=== PATIENT | female | born 1940 | race Asian ===

== ENCOUNTER 2018-08-12 11:15 | Emergency (ER) | payer OTHER, MEDICARE ==
[2018-08-12 11:22] VITALS: BP 136/51; PULSE 83; TEMP 97.8; BMI 22.4
[2018-08-12] MEDS ORDERED: KETOROLAC TROMETHAMINE 30 MG/1 ML VIAL IM ONE (11:54)
[2018-08-12] MEDS ORDERED: LIDOCAINE 5% TOPICAL PATCH TP ONE (11:55)
[2018-08-12] MEDS ORDERED: LIDOCAINE 5% TOPICAL PATCH ONE (12:23)
[2018-08-12] MEDS ORDERED: KETOROLAC TROMETHAMINE 30 MG/1 ML VIAL ONE (12:23)
[2018-08-12 12:34] LABS: PH,URINE 6.5 (5.0-8.0); URINE APPEARANCE CLEAR; URINE BILIRUBIN NEGATIVE (NEGATIVE); URINE COLOR YELLOW; URINE GLUCOSE (UA) NEGATIVE (NEGATIVE); URINE KETONE NEGATIVE (NEGATIVE); URINE LEUK ESTERASE NEGATIVE (NEGATIVE); URINE NITRITE NEGATIVE (NEGATIVE); URINE PROTEIN NEGATIVE (NEGATIVE); URINE UROBILINOGEN 0.2 mg/dL (0.2-1.0)
--- NOTE | 2018-08-12 12:43 | PDOC ---
History of Present Illness - General History Source: Patient - History of Present Illness Occurred: reports: other Severity: reports: severe Pain Location: reports: back <Rita MachucaTamikoRadha - Last Filed: 08/12/18 13:24> <Octavia De La O - Last Filed: 08/15/18 10:28> - General Chief Complaint: Pain, Acute Stated Complaint: FLANK PAIN/ABD.PAIN Time Seen by Provider: 08/12/18 11:49 Past History - Past Medical History Anemia: No Asthma: No Cancer: No Cardiac Disorders: No (HX OF SVT, ASHD) CVA: No COPD: No (HX OF PNEUMONIA X 2) CHF: No Dementia: No Diabetes: No GI Disorders: Yes (ulcer) Disorders: No HTN: No Hypercholesterolemia: Yes Liver Disease: No Seizures: No Thyroid Disease: No - Surgical History Abdominal Surgery: No Appendectomy: Yes Cardiac Surgery: Yes (ABLATED BY PES) Cholecystectomy: No Lung Surgery: No Neurologic Surgery: No Orthopedic Surgery: No - Immunization History Immunization Up to Date: No - Suicide/Smoking/Psychosocial Hx Smoking Status: No Smoking History: Never smoked Have you smoked in the past 12 months: No Number of Cigarettes Smoked Daily: 0 Information on smoking cessation initiated: No Hx Alcohol Use: No Drug/Substance Use Hx: No Substance Use Type: None Hx Substance Use Treatment: No <Rita MachucaTamikoRadha - Last Filed: 08/12/18 13:24> <Octavia De La O - Last Filed: 08/15/18 10:28> - Past Medical History Allergies/Adverse Reactions: Allergies Allergy/AdvReac Type Severity Reaction Status Date / Time gemfibrozil [From Lopid] Allergy Severe Hives Verified 11/24/14 13:15 morphine Allergy Severe Vomiting Verified 11/24/14 13:15 Sulfa (Sulfonamide Allergy Rash Verified 04/23/18 11:32 Antibiotics) ALMOND Allergy Severe Uncoded 11/24/14 13:15 Home Medications: Ambulatory Orders Fexofenadine HCl [Lynne] 180 mg PO DAILY 11/01/11 Metoprolol Succinate [Toprol XL -] 25 mg PO DAILY 11/01/11 Cholecalciferol (Vitamin D3) [Vitamin D] 4,000 unit PO DAILY 06/11/14 Ranitidine [Zantac -] 150 mg PO BID #180 tablet 10/20/14 Promethazine HCl [Phenergan Plain 6.25 MG/5 ML -] 5 ml PO TID #120 ml 11/24/14 Acetaminophen [Tylenol -] 1,000 mg PO Q6H #30 tablet 08/12/18 Lidocaine 5% Patch [Lidoderm Patch -] 1 patch TP DAILY #7 patch 08/12/18 Rosuvastatin [Crestor -] 10 mg PO DAILY 08/12/18 Review of Systems - Review of Systems Constitutional: No: Chills, Fever Respiratory: No: Shortness of Breath Cardiac (ROS): No: Chest Pain ABD/GI: No: Nausea, Vomiting, Abdominal cramping : No: Dysuria, Flank Pain, Hematuria Musculoskeletal: Yes: Back Pain Neurological: No: Numbness, Tingling, Weakness <Santana Machuca - Last Filed: 08/12/18 13:24> *Physical Exam - Vital Signs Last Vital Signs Temp Pulse Resp BP Pulse Ox 97.8 F 83 16 136/51 L 99 08/12/18 11:19 08/12/18 11:19 08/12/18 11:08/12/18 11:19 08/12/18 11:19 - Physical Exam General Appearance: Yes: Appropriately Dressed, Mild Distress HEENT: positive: Normal Voice Neck: positive: Supple Respiratory/Chest: positive: Lungs Clear, Normal Breath Sounds. negative: Respiratory Distress Cardiovascular: positive: Regular Rate, S1, S2 Gastrointestinal/Abdominal: positive: Soft. negative: Tender Musculoskeletal: positive: Other (reports mid/lower back pain when changing positions in ED). negative: CVA Tenderness, Vertebral Tenderness Integumentary: positive: Dry, Warm Neurologic: positive: Fully Oriented, Alert, Normal Mood/Affect, Motor Strength 5/5, Other (neg SLR, abmbulatory) <Santana Machuca - Last Filed: 08/12/18 13:24> - Vital Signs Last Vital Signs Temp Pulse Resp BP Pulse Ox 97.8 F 83 16 136/51 L 99 08/12/18 11:19 08/12/18 11:19 08/12/18 11:19 08/12/18 11:19 08/12/18 11:19 <Octavia De La O - Last Filed: 08/15/18 10:28> ED Treatment Course - RADIOLOGY Radiology Studies Ordered: Category Date Time Status SPINE-LUMBAR SACRAL [RAD] Stat Radiology 08/12/18 11:56 Ordered SPINE-THORACIC [RAD] Stat Radiology 08/12/18 11:56 Ordered <Santana Machuca - Last Filed: 08/12/18 13:24> - ADDITIONAL ORDERS Additional order review: 08/12/18 12:24 Urine Culture - Final Urine - Urine Clean Catch NO GROWTH OBTAINED - Medications Given in the ED: ED Medications Discontinued Medications Generic Name Dose Route Start Last Admin Trade Name Ceci PRN Reason Stop Dose Admin Ketorolac Tromethamine 30 mg 08/12/18 11:54 08/12/18 12:50 Toradol Injection - IM 08/12/18 11:55 30 mg ONCE ONE Administration Lidocaine 1 patch 08/12/18 11:55 08/12/18 12:45 Lidoderm Patch - TP 08/12/18 11:56 1 patch ONCE ONE Administration <Octavia De La O - Last Filed: 08/15/18 10:28> Medical Decision Making - Medical Decision Making 08/12/18 11:57 78 yo F, h/o chronic LBP, 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 Pt states for the past 4 days, she has had pain to mid to lower back "that goes all the way across my back" per pt, worse when sitting, standing and when laying supine. Taking alleve w/ some relief. States current back pain feels different from her usual back pain. No recent trauma. No LE weakness, sensory changes, bowel or bladder incontinence or saddle anesthesia. Patient denies abd pain, dysuria, hematuria, nausea, vomiting, fever or chills see exam Acute on chronic LBP H/o known DJD/spondylosis on MRI S/p PT in the past No recent trauma No infectious sxs No neuro sxs No red flags in ER -pain control -ua -XR r/o compression fx 08/12/18 13:32 XR neg for e/o compression fx. UA without infxn. Pt feeling better with meds. Now states she has an appt with her orthopedic in the a.m. <Santana Machuca - Last Filed: 08/12/18 13:24> - Medical Decision Making The patient was seen and evaluated in conjunction with midlevel provider under my direct supervision, ancillary studies were reviewed. I agree with the plan as outlined JENNIFER Machuca. HPI, workup/dispo as outlined. VS reviewed, wnl. anticipate discharge, pcp followup, return precautions xray with degenerative disc disease, multi level thoraco-lumbar spine. L3 mild compression, appears chronic, indeterminate age no neuro deficits. outpatient followup appropriate with ortho appt in the morning 08/15/18 10:26 08/15/18 10:27 <Octavia De La O - Last Filed: 08/15/18 10:28> *DC/Admit/Observation/Transfer <Santana Machuca - Last Filed: 08/12/18 13:24> <Octavia De La O - Last Filed: 08/15/18 10:28> Diagnosis at time of Disposition: Back pain Qualifiers: Back pain location: low back pain Chronicity: chronic Back pain laterality: unspecified Sciatica presence: without sciatica Qualified Code(s): M54.5 - Low back pain - Discharge Dispostion Disposition: HOME Condition at time of disposition: Improved - Prescriptions Prescriptions: Acetaminophen [Tylenol -] 1,000 mg PO Q6H #30 tablet Lidocaine 5% Patch [Lidoderm Patch -] 1 patch TP DAILY #7 patch - Patient Instructions Printed Discharge Instructions: DI for Low Back Pain Additional Instructions: X-ray did not show any evidence of an acute fracture and your urine did not show signs of infection Take medications as prescribed and please follow-up with your orthopedic doctor as scheduled tomorrow
[2018-08-12] MEDS ORDERED: LIDOCAINE PATCH REMOVAL MC SCH (22:00)
== END 2018-08-12 13:45 | disposition home or self-care (01) ==
LOC: JER 11:15
PROC: 3E0233Z Introduction of Anti-inflammatory into Muscle, Percutaneous Approach (ICD-10-PCS; principal; 2018-08-12)
PROC: 3E0233Z Introduction of Anti-inflammatory into Muscle, Percutaneous Approach (ICD-10-PCS; 2018-08-12)
DX: M54.5 Low back pain (principal); G89.29 Other chronic pain; Z86.79 Personal history of other diseases of the circulatory system; Z87.01 Personal history of pneumonia (recurrent)
CPT/HCPCS: 72070-TC-FY; 72100-TC-FY; 81003; 87086; 96372; 99283-25

== ENCOUNTER 2021-06-28 16:12 | Emergency (ER) | payer OTHER, MEDICARE ==
[2021-06-28 17:03] VITALS: BP 120/50; PULSE 66; TEMP 98; BMI 22.8
[2021-06-28] MEDS ORDERED: ACETAMINOPHEN 500 MG TABLET (FP) PO ONE (17:29)
[2021-06-28] MEDS ORDERED: LIDOCAINE 5% TOPICAL PATCH TP ONE (17:29)
[2021-06-28] MEDS ORDERED: ACETAMINOPHEN 325 MG TABLET (FP) ONE (18:07)
[2021-06-28] MEDS ORDERED: LIDOCAINE 5% TOPICAL PATCH ONE (18:07)
[2021-06-29] MEDS ORDERED: LIDOCAINE PATCH REMOVAL MC SCH (06:00)
== END 2021-06-28 20:16 | disposition home or self-care (01) ==
LOC: JER 16:12
DX: M54.9 Dorsalgia, unspecified (principal)
CPT/HCPCS: 0241U-QW; 72100-TC-FY; 72131-TC; 72170-TC-FY; 73502-TC-RT-FY; 99285-25

== ENCOUNTER 2021-11-04 16:52 | Inpatient (IN) | payer OTHER, MEDICARE ==
[2021-11-04] MEDS ORDERED: ACETAMINOPHEN 1000 MG/100 ML BAG IVPB ONE (17:31)
[2021-11-04 18:04] LABS: HEMATOCRIT 35.8 % (32.4-45.2); HEMOGLOBIN 12.3 G/dL (10.7-15.3); MCH 30.8 pg (25.7-33.7); MCHC 34.3 g/dl (32.0-36.0); MEAN CELL VOLUME 89.7 fl (80-96); MEAN PLT VOLUME 7.1 fl (7.5-11.1); PLATELET COUNT 343.7 10^3/uL (134-434); RBC 3.99 10^6/uL (3.60-5.2); RDW 13.9 % (11.6-15.6)
[2021-11-04] MEDS ORDERED: ACETAMINOPHEN INJECTION 100 ML IVPB ONE (18:11)
[2021-11-04 18:15] LABS: ALBUMIN 3.5 g/dl (3.4-5.0); BILIRUBIN,TOTAL 0.6 mg/dl (0.2-1); CALCIUM 9.7 mg/dl (8.5-10); CREATININE 0.7 mg/dl (0.55-1.3); TOT PROT 7.7 g/dl (6.4-8.2)
[2021-11-04 18:56] LABS: PLATELET ESTIMATE ADEQUATE
[2021-11-04] MEDS ORDERED: PIPERACILLIN/TAZOB 3.375 GM 3.375 GM in DEXTROSE 5%-WATER - 50 ML IVPB ONE (19:00)
[2021-11-04] MEDS ORDERED: PIPERACILLIN/TAZOBACTAM 3.375 GM VIAL IVPB ONE (19:06)
[2021-11-04] MEDS ORDERED: VANCOMYCIN 1 GRAM (PRE-DOCKED) 1,000 MG/250 ML BAG IVPB ONE (21:00)
[2021-11-04] MEDS ORDERED: VANCOMYCIN 1,000 MG VIAL (RESTRICTED TO ID ONLY) ONE ×2 (21:06→21:13)
[2021-11-04 22:08] VITALS: BMI 22.9
[2021-11-04] MEDS ORDERED: ACETAMINOPHEN 1000 MG/100 ML BAG IVPB PRN (23:00)
[2021-11-05] MEDS: PIPERACILLIN/TAZOB 3.375 GM 3.375 GM in DEXTROSE 5%-WATER - 50 ML IVPB SCH ×2 (01:27→10:16)
[2021-11-05 08:11] LABS: HEMATOCRIT 31.1 % (32.4-45.2); HEMOGLOBIN 10.8 G/dL (10.7-15.3); MCH 30.9 pg (25.7-33.7); MCHC 34.6 g/dl (32.0-36.0); MEAN CELL VOLUME 89.5 fl (80-96); MEAN PLT VOLUME 7.1 fl (7.5-11.1); PLATELET COUNT 296.9 10^3/uL (134-434); RBC 3.48 10^6/uL (3.60-5.2); RDW 14.3 % (11.6-15.6); WHITE BLOOD COUNT 7.6 10^3/uL (4.0-10.8)
[2021-11-05 08:21] LABS: ALBUMIN 2.6 g/dl (3.4-5.0); BILIRUBIN,TOTAL 0.7 mg/dl (0.2-1); CALCIUM 8.8 mg/dl (8.5-10); CREATININE 0.7 mg/dl (0.55-1.3); TOT PROT 5.9 g/dl (6.4-8.2)
[2021-11-05] MEDS: ASPIRIN 81 MG CHEWABLE TABLETS PO SCH (10:16)
[2021-11-05] MEDS: metoPROLOL SUCCINATE 25 MG TAB.SR.24H (FP) PO SCH (11:55)
[2021-11-05] MEDS: LORATADINE 10 MG TABLET PO SCH (11:55)
[2021-11-05 12:15] LABS: PLATELET ESTIMATE ADEQUATE
[2021-11-05] MEDS: ACETAMINOPHEN 325 MG TABLET (FP) PO PRN (12:15)
[2021-11-05] MEDS: CEFTRIAXONE 1 GM in DEXTROSE 5%-WATER - 50 ML IVPB SCH (18:15)
[2021-11-05] MEDS: ROSUVASTATIN CA 10 MG TABLET PO SCH (21:24)
[2021-11-05] MEDS: HEPARIN NA (PORCINE) 5,000 UNITS/ML 1ML VIAL SQ SCH ×2 (21:24→21:31)
[2021-11-05] MEDS ORDERED: ROSUVASTATIN CA 10 MG TABLET PO SCH (22:00)
[2021-11-06 08:41] LABS: ALBUMIN 2.8 g/dl (3.4-5.0); BILIRUBIN,TOTAL 0.3 mg/dl (0.2-1); CALCIUM 9.5 mg/dl (8.5-10); CREATININE 0.7 mg/dl (0.55-1.3); MAGNESIUM 1.9 mg/dL (1.8-2.4); TOT PROT 6.7 g/dl (6.4-8.2)
[2021-11-06 08:51] LABS: BASO % 0.5 % (0-2.0); EOS % 9.5 % (0-4.5); HEMATOCRIT 32.8 % (32.4-45.2); HEMOGLOBIN 11.1 GM/dL (10.7-15.3); LYMPH % 21.7 % (8-40); MCH 29.8 pg (25.7-33.7); MCHC 33.7 g/dl (32.0-36.0); MEAN CELL VOLUME 88.5 fl (80-96); MEAN PLT VOLUME 7.1 fl (7.5-11.1); MONO % 11.3 % (3.8-10.2); PLATELET COUNT 365 10^3/uL (134-434); RDW 13.6 % (11.6-15.6); WHITE BLOOD COUNT 6.1 K/mm3 (4.0-10.0)
[2021-11-06] MEDS: metoPROLOL SUCCINATE 25 MG TAB.SR.24H (FP) PO SCH (09:58)
[2021-11-06] MEDS: LORATADINE 10 MG TABLET PO SCH (09:58)
[2021-11-06] MEDS: CEFTRIAXONE 1 GM in DEXTROSE 5%-WATER - 50 ML IVPB SCH (09:59)
[2021-11-06] MEDS: ASPIRIN 81 MG CHEWABLE TABLETS PO SCH (10:12)
[2021-11-06] MEDS: HEPARIN NA (PORCINE) 5,000 UNITS/ML 1ML VIAL SQ SCH (10:15)
[2021-11-06] MEDS: ENOXAPARIN NA (PORCINE) 40 MG/0.4 ML DISP.SYRIN SQ SCH (10:15)
[2021-11-06] MEDS: ACETAMINOPHEN 325 MG TABLET (FP) PO PRN (12:33)
[2021-11-06] MEDS: AMPICILLIN NA/SULBACTAM NA 3 GM in SODIUM CHLORIDE 100 ML IVPB SCH ×2 (15:05→22:07)
[2021-11-06 20:26] VITALS: RESP 18
[2021-11-06] MEDS: ROSUVASTATIN CA 10 MG TABLET PO SCH (22:07)
[2021-11-07] MEDS: AMPICILLIN NA/SULBACTAM NA 3 GM in SODIUM CHLORIDE 100 ML IVPB SCH ×2 (03:35→09:31)
[2021-11-07] MEDS: metoPROLOL SUCCINATE 25 MG TAB.SR.24H (FP) PO SCH (09:31)
[2021-11-07] MEDS: LORATADINE 10 MG TABLET PO SCH (09:31)
[2021-11-07] MEDS: ASPIRIN 81 MG CHEWABLE TABLETS PO SCH (09:31)
[2021-11-07] MEDS: ENOXAPARIN NA (PORCINE) 40 MG/0.4 ML DISP.SYRIN SQ SCH (09:49)
[2021-11-07 09:50] VITALS: BP 132/88; PULSE 88; TEMP 97.8
[2021-11-07 10:15] LABS: BASO % 0.6 % (0-2.0); EOS % 12.2 % (0-4.5); HEMATOCRIT 32.6 % (32.4-45.2); HEMOGLOBIN 10.8 GM/dL (10.7-15.3); LYMPH % 25.2 % (8-40); MCH 29.6 pg (25.7-33.7); MCHC 33.3 g/dl (32.0-36.0); MONO % 12.7 % (3.8-10.2); NEUT % 49.3 % (42.8-82.8); PLATELET COUNT 378 10^3/uL (134-434); RBC 3.66 M/mm3 (3.60-5.2); RDW 13.5 % (11.6-15.6); WHITE BLOOD COUNT 7.4 K/mm3 (4.0-10.0)
== END 2021-11-07 11:39 | disposition home or self-care (01) | DRG 153 ==
LOC: FER 16:52 → FM/S 18:58
PROVIDERS: ADMIT Internal Medicine
DX: J01.80 Other acute sinusitis (principal); R78.81 Bacteremia; R51.9 Headache, unspecified; I25.10 Atherosclerotic heart disease of native coronary artery without angina pectoris; E78.5 Hyperlipidemia, unspecified; M54.9 Dorsalgia, unspecified; B95.4 Other streptococcus as the cause of diseases classified elsewhere; Z96.652 Presence of left artificial knee joint; R53.1 Weakness; I10 Essential (primary) hypertension
CPT/HCPCS: 0241U-QW; 36415; 70450-TC; 71046-TC-FY; 71250-TC; 80053; 81003; 81015; 83605; 83735; 85025; 85027; 85379; 87040; 87086; 87186; 93005; 93306-TC; 99285-25; J1644

== ENCOUNTER 2022-03-23 04:31 | Day surgery (SDC) | payer OTHER, MEDICARE ==
[2022-03-22 11:52] VITALS: BMI 22.4
[2022-03-23] MEDS ORDERED: KETAMINE HCL 500 MG/10 ML VIAL ONE (07:19)
[2022-03-23 10:56] VITALS: BP 152/79; PULSE 79; RESP 18; TEMP 98
[2022-03-23] MEDS ORDERED: ACETAMINOPHEN INJECTION 200 ML IVPB ONE (12:39)
[2022-03-23] MEDS ORDERED: DEXMEDETOMIDINE HCL 200 MCG/2 ML IVPB ONE (12:39)
== END 2022-03-23 11:00 | disposition home or self-care (01) ==
LOC: JASU-ENDO 04:31
PROVIDERS: ATTEND Internal Medicine Gastroenterology
PROC: 0DB78ZX Excision of Stomach, Pylorus, Via Natural or Artificial Opening Endoscopic, Diagnostic (ICD-10-PCS; 2022-03-23)
PROC: 0DB68ZX Excision of Stomach, Via Natural or Artificial Opening Endoscopic, Diagnostic (ICD-10-PCS; 2022-03-23)
PROC: 0DB48ZX Excision of Esophagogastric Junction, Via Natural or Artificial Opening Endoscopic, Diagnostic (ICD-10-PCS; 2022-03-23)
PROC: 0DB98ZX Excision of Duodenum, Via Natural or Artificial Opening Endoscopic, Diagnostic (ICD-10-PCS; principal; 2022-03-23 08:00)
DX: K21.00 Gastro-esophageal reflux disease with esophagitis, without bleeding (principal); K44.9 Diaphragmatic hernia without obstruction or gangrene; K22.89 Other specified disease of esophagus; K29.50 Unspecified chronic gastritis without bleeding
CPT/HCPCS: 88305-TC; 88342-TC